=== PATIENT | male | born 1965 | race Caucasian/White ===

== ENCOUNTER → 2016-11-15 | Outpatient (CLI) | payer OTHER ==
--- NOTE | 2016-11-15 16:09 | RAD ---
Left forearm radiographs History: Left forearm pain and swelling. Trauma a few days ago. Comparison: None. Findings: AP and lateral views of the left forearm. No acute fracture or acute malalignment is identified. No radiopaque foreign body is seen. Impression: No acute osseous abnormality identified.
== END | disposition home or self-care (01) ==
LOC: DXRADRC 14:18
PROVIDERS: ATTEND Physician Assistant
DX: M25.532 Pain in left wrist (principal); T14.90 Injury, unspecified; X58.XXXD Exposure to other specified factors, subsequent encounter
CPT/HCPCS: 73090

== ENCOUNTER 2019-12-06 10:07 | Emergency (ER) | payer OTHER ==
[~2019-12-06] VITALS: Ht 170.2 cm; Wt 81.1 kg
[2019-12-06 10:07] VITALS: BP 141/85
--- NOTE | 2019-12-06 10:45 | RAD ---
Nasal bones AP and both lateral images. HISTORY: Trauma, hit left side of nose with crowbar AP and both lateral views were taken of the nasal bones. There is mild mucosal thickening in the right maxillary sinus. Remaining sinuses are clear. There is mild irregularity of the right nasal bone but a fracture across the top of the nasal bone is not evident. There is a possible fracture of the nasal spine but it is incompletely evaluated. There is slight bowing of the nasal septum to the left. IMPRESSION: 1. Mild irregularity of the right nasal bone but no fracture across the top of the nasal bone. 2. Mild irregularity of the nasal spine incompletely evaluated. 3. Mild mucosal thickening right maxillary antrum. Electronically signed by: Esdras Adair MD (12/06/2019 10:42 AM) [id number]
--- NOTE | 2019-12-06 10:52 | PHYS DOC ---
Past History Past Medical History: No Pertinent History Past Surgical History: No Surgical History Alcohol Use: Occasionally General Adult EDM: Chief Complaint: LACERATION/AVULSION HPI: HPI: Patient is a 54-year-old relatively healthy male who presents today with a nose injury. He states he was building a deck trying to split some wood hitting the wood with a hammer knocked his crowbar back up into his face hit him in the nose and open the laceration to the left side of his nose. He did not lose consciousness. He denies any significant pain at this time. He states his last tetanus shot was about 3 years ago. [] Review of Systems: Review of Systems: Constitutional: Denies fever or chills Eyes: Denies change in visual acuity HENT: Denies nasal congestion or sore throat Respiratory: Denies cough or shortness of breath Cardiovascular: Denies chest pain or edema GI: Denies abdominal pain, nausea, vomiting, bloody stools or diarrhea : Denies dysuria Musculoskeletal: Denies back pain or joint pain Integument: Per HPI Neurologic: Denies headache, focal weakness or sensory changes Endocrine: Denies polyuria or polydipsia Lymphatic: Denies swollen glands Psychiatric: Denies depression or anxiety Heart Score: Risk Factors: Risk Factors: DM, Current or recent (<one month) smoker, HTN, HLP, family history of CAD, obesity. Risk Scores: Score 0 - 3: 2.5% MACE over next 6 weeks - Discharge Home Score 4 - 6: 20.3% MACE over next 6 weeks - Admit for Clinical Observation Score 7 - 10: 72.7% MACE over next 6 weeks - Early Invasive Strategies Allergies: Allergies: Allergies Coded Allergies Type Severity Reaction Last Updated Verified Iodinated Contrast- Oral and IV Dye Adverse Reaction Intermediate 12/23/15 Yes Physical Exam: PE: Constitutional: Well developed, well nourished, no acute distress, non-toxic appearance. [] HENT: Normocephalic, atraumatic, bilateral external ears normal, oropharynx moist, no oral exudates, the nasal bridge appears and feels stable he does have a 2.5 cm linear laceration from the superior aspect of the nasal bridge down to the left anterior nasolabial fold. [] Eyes: PERRLA, EOMI, conjunctiva normal, no discharge. [] Neck: Normal range of motion, no tenderness, supple, no stridor. [] Cardiovascular:Heart rate regular rhythm, no murmur [] Lungs & Thorax: Bilateral breath sounds clear to auscultation [] Abdomen: Bowel sounds normal, soft, no tenderness, no masses, no pulsatile masses. [] Skin: Warm, dry, no erythema, no rash. [] Back: No tenderness, no CVA tenderness. [] Extremities: No tenderness, no cyanosis, no clubbing, ROM intact, no edema. [] Neurologic: Alert and oriented X 3, normal motor function, normal sensory function, no focal deficits noted. [] Psychologic: Affect normal, judgement normal, mood normal. [] Current Patient Data: Vital Signs: Vital Signs Date Time Temp Pulse Resp B/P (MAP) Pulse Ox O2 Delivery O2 Flow Rate FiO2 12/06/19 10:07 97.7 69 16 141/85 (103) 98 Room Air EKG: EKG: [] Radiology/Procedures: Radiology/Procedures: [REASON: trauma - hit in left side of nose with [place] bar PROCEDURE: NASAL BONES 3+V Nasal bones AP and both lateral images. HISTORY: Trauma, hit left side of nose with crowbar AP and both lateral views were taken of the nasal bones. There is mild mucosal thickening in the right maxillary sinus. Remaining sinuses are clear. There is mild irregularity of the right nasal bone but a fracture across the top of the nasal bone is not evident. There is a possible fracture of the nasal spine but it is incompletely evaluated. There is slight bowing of the nasal septum to the left. IMPRESSION: 1. Mild irregularity of the right nasal bone but no fracture across the top of the nasal bone. 2. Mild irregularity of the nasal spine incompletely evaluated. 3. Mild mucosal thickening right maxillary antrum. Course & Med Decision Making: Course & Med Decision Making Pertinent Labs and Imaging studies reviewed. (See chart for details) [Procedure: Laceration repair Wound was scrubbed with Hibiclens and inspected for foreign bodies none of which were found then using Dermabond the wound edges were reapproximated nicely. Patient tolerated procedure well] Dragon Disclaimer: Dragon Disclaimer: This electronic medical record was generated, in whole or in part, using a voice recognition dictation system. Departure Departure: Impression: Primary Impression: Simple laceration of nose Disposition: 01 HOME/RESIDENCE PRIOR TO ADM Condition: STABLE Referrals: SAV,ROSI M PA (PCP) Patient Instructions: Facial Laceration Additional Instructions: Dermabond instructions were provided to you. Please follow these instructions closely. Return to the emergency department with any new or concerning symptoms SATYA PHILLIPS DO December 06, 2019 10:52
== END 2019-12-06 10:55 | disposition home or self-care (01) ==
LOC: ER 10:07
DX: S01.21XA Laceration without foreign body of nose, initial encounter (principal); Z91.041 Radiographic dye allergy status; W22.8XXA Striking against or struck by other objects, initial encounter; Y93.89 Activity, other specified; Y92.89 Other specified places as the place of occurrence of the external cause; Y99.8 Other external cause status
CPT/HCPCS: 12011; 70160; 99283